=== PATIENT | male | born 1970 | race Caucasian/White ===

== ENCOUNTER 2017-03-26 20:13 | Emergency (ER) | payer OTHER ==
[~2017-03-26] VITALS: Ht 180.3 cm; Wt 97.5 kg
--- NOTE | 2017-03-26 21:55 | ED INFLUENZA/URI COMPLAINT ---
History of Present Illness General Chief Complaint: Upper Respiratory Sx/Fever Stated Complaint: COUGHING,CHEST CONGESTION,SINUS PAIN AND PRESSURE Source: patient, family, old records Exam Limitations: no limitations Vital Signs & Intake/Output Vital Signs & Intake/Output Vital Signs Date Time Temp Pulse Resp B/P B/P Pulse O2 O2 Flow FiO2 Mean Ox Delivery Rate 03/26 2244 98.7 80 18 128/88 98 Room Air 03/26 2243 98 Room Air 03/26 2020 97.9 76 18 133/93 98 Room Air ED Intake and Output 03/27 0000 03/26 1200 Intake Total Output Total Balance Patient 215 lb Weight Weight Reported by Patient Measurement Method Allergies Coded Allergies: metoclopramide (HALLUCINATIONS 03/26/17) Reconcile Medications Albuterol Sulfate (Proair Hfa) 90 MCG HFA.AER.AD 2 PUF INH Q4-6 PRN PRN wheezing Amoxicillin/Potassium Clav (Augmentin 875-125 Tablet) 875 MG-125 MG TABLET 1 TAB PO BID bronchitis Codeine Phosphate/Guaifenesi (Guaifen-Codeine 100-10 MG/5 Ml) 10 MG-100 MG/5 ML LIQUID 10 ML PO Q6HR PRN COUGH Methylprednisolone. (Medrol) 4 MG TAB.DS.PK 1 DP PO AD bronchitis 6 on day 1 then reduce by one tablet daily until gone Triage Note: PT TO TRIAGE WITH C/O CONGESTION, DRY COUGH, SINUS PRESSURE xMONTH. PT HAS BEEN ON ?COUGH MED WITH NO RELIEF. VSS. Triage Nurses Notes Reviewed? yes Onset: Gradual Duration: week(s): (3), intermittent, waxing and waning Timing: recent history Severity: mild, moderate Severity Numbers: 6 Prior Episodes/Possible Cause: occassional episodes No Modifying Factors: none Associated Symptoms: cough, nasal congestion, nasal drainage HPI: 47-year-old male with history of hypertension and high cholesterol presents to the ER for evaluation complaining of rhinorrhea congestion sinus pressure for the past 2-3 weeks associated with a dry nonproductive cough. Patient has a history of bronchitis and states he has similar episodes of these symptoms every time this year. He has not sought care for the symptoms he's been using over- the-counter cough medicine without improvement. No history of asthma. He does not smoke no chest pain no shortness of breath no fever no chills abdominal pain nausea vomiting or diarrhea. No modifying Factors or associated symptoms otherwise. (ENRIQUE FINLEY) Past History Travel History Traveled to [place] past 21 day No Medical History Any Pertinent Medical History? see below for history Cardiovascular: hypertension, hyperlipidemia Respiratory: bronchitis Renal: chronic kidney disease Surgical History Surgical History: non-contributory Psychosocial History What is your primary language Malay Tobacco Use: Never used Family History Hx Contributory? No (ENRIQUE FINLEY) Review of Systems Review of Systems Constitutional: Reports: see HPI. All Other Systems: Reviewed and Negative Comments Review of systems: See HPI, All other systems negative. Constitutional, no chills no fever, no malaise HEENT: No visual changes no sore throat congestion, no ear pain Cardiovascular: No chest pain , no palpitation Skin: no rashes, no change in skin Respiratory: No dyspnea cough no sputum no hemoptysis GI: No nausea no vomiting, no diarrhea, no bloating/constipation : No dysuria Muscle skeletal: No joint pain, no joint swelling, no back pain, no neck pain, Neurologic: no headache Psych: No stress no depression,. Heme/endocrine: No bruising no bleeding Immunology: No lymphadenopathy (ENRIQUE FINLEY) Physical Exam Physical Exam General Appearance: well developed/nourished, no apparent distress, alert, awake Ears, Nose, Throat: normal ENT inspection, moist mucous membrane Comments: Well-developed well-nourished patient in no apparent distress. Head/Face: Atraumatic, no maxillary/frontal sinus tenderness, no facial swelling Eyes: PERRL, EOMI, no conjunctival injection. No nystagmus Ear:External auditory canal and Tympanic membranes clear, no erythema, no FB. Nose: atraumatic.Normal inspection Throat: Moist mucous membranes.Pharynx normal. No pharyngeal erythema/exudate seen. No stridor/drooling or assymetry. No swelling or edema. Neck: Supple, no lymphadenopathy, FROM Back: FROM Cardiovascular: Regular rate and rhythms no murmurs rubs or gallops, Respiratory: Chest nontender.There were no bony deformities, no asymmetry. No respiratory distress. Patient speaking in full complete sentences. Breath sounds clear to auscultation bilaterally: NO W/R/R expiratory wheezes bilaterally no rhonchi no rales Extremities: full range of motion Neuro: awake, alert, and oriented to person, place and time. There were no obvious focal neurologic abnormalities. Skin: Warm & dry;No appreciable rash on exposed skin Psych: Mood affect normal, normal memory normal judgment. Core Measures Severe Sepsis Present: No Septic Shock Present: No (ENRIQUE FINLEY) Progress Differential Diagnosis: influenza, otitis, pneumonia, pharyngitis, sinusitis, bronchitis Plan of Care: Current Medications Sig/Noman Start time Last Medication Dose Stop Time Status Admin Albuterol Sulfate 3 ML ONCE ONE 03/26 2215 UNVr (Proventil) 03/26 2216 Albuterol Sulfate 3 ML ONCE ONE 03/26 2200 UNVr 03/26 (Proventil) 03/26 Guaifenesin/Codeine 10 ML ONCE ONE 03/26 2200 UNVr Phosphate 03/26 2201 (Robitussin AC) Ipratropium [place] 2.5 ML ONCE ONE 03/26 2200 UNVr 03/26 (Atrovent) 03/26 DuoNeb ordered patient medicated the Robitussin with codeine 2229 Patient reports to feeling improved after breathing treatment I discussed with the patient at length all of their results. I had an extensive conversation regarding need for close follow up with their primary care physician this week as well as return precautions. I answered all of their questions, they feel comfortable with the plan and follow-up care. I discussed the medications that they will receive with the patient. I gave them signs and symptoms that could indicate an adverse reaction. I have advised them to limit their activities until they can see how they respond to the medication. (ENRIQUE FINLEY) Initial ED EKG: none (ENRIQUE FINLEY) Departure Departure Time of Disposition: 2223 Disposition: HOME OR SELF CARE Condition: Stable Clinical Impression Primary Impression: Bronchitis Referrals: CORNEL LAURENT MD (PCP/Family) Additional Instructions: medrol dose silas as directed, robitussin with codeine for cough- use caution as this will make you drowsy. proair inhaler as needed. augmentin as directed. these were sent to [facility]. follow up with your pmd this week, return to the ER with any concerns Departure Forms: Customer Survey General Discharge Information Prescriptions: Current Visit Scripts Methylprednisolone. (Medrol) 1 DP PO AD #1 DP 6 on day 1 then reduce by one tablet daily until gone Amoxicillin/Potassium Clav (Augmentin 875-125 Tablet) 1 TAB PO BID #14 TAB Albuterol Sulfate (Proair Hfa) 2 PUF INH Q4-6 PRN PRN wheezing #1 INHAL Codeine Phosphate/Guaifenesi (Guaifen-Codeine 100-10 MG/5 Ml) 10 ML PO Q6HR PRN COUGH #200 ML (ENRIQUE FINLEY) PA/[employer] Co-Sign Statement Statement: ED Attending supervision documentation- [] I saw and evaluated the patient. I have also reviewed all the pertinent lab results and diagnostic results. I agree with the findings and the plan of care as documented in the PA's/[employer] W[employer]ER's documentation. [x] I have reviewed the ED Record and agree with the PA's/[employer] W[employer]ER's documentation. [] Additions or exceptions (if any) to the PAs/C[employer]HER [employer] W[employer]ER's note and plan are summarized below: [] (AILYN BUCIO,ERIKA Swanson)
[2017-03-26] MEDS ORDERED: PROAIR HFA8.5 GM INH (22:26)
[2017-03-26] MEDS ORDERED: MEDROL4 M2 PO (22:26)
[2017-03-26] MEDS ORDERED: AUGMENTIN 875-1 EACH PO (22:26)
[2017-03-26] MEDS ORDERED: GUAIFEN-CODEIN118 M1 PO (22:26)
[2017-03-26 22:44] VITALS: BP 128/88
== END 2017-03-26 22:45 ==
LOC: ERH 20:13
DX: J40 Bronchitis, not specified as acute or chronic (principal)
CPT/HCPCS: 1263